=== PATIENT | male | born 1980 | race Caucasian/White ===

== ENCOUNTER 2017-09-22 13:26 | Emergency (ER) | payer OTHER ==
[2017-09-22] MEDS: morphine 10 MG INJ IM (13:45)
[2017-09-22] MEDS: KETOROLAC 60 MG INJ IM (14:23)
[2017-09-22] MEDS: morphine 4 MG/ML VIAL IM (15:40)
== END 2017-09-22 16:27 | disposition home or self-care (01) ==
LOC: E/R 13:26
DX: S20.219A Contusion of unspecified front wall of thorax, initial encounter (principal); I10 Essential (primary) hypertension; W18.39XA Other fall on same level, initial encounter; Y92.9 Unspecified place or not applicable
CPT/HCPCS: 71100; 96372; 99284-25